=== PATIENT | male | born 1980 | race Caucasian/White ===

== ENCOUNTER 2023-03-01 08:55 | Emergency (ER) | payer BC, SELFPAY ==
[2023-03-01 09:04] VITALS: PULSE 61; RESP 18; TEMP 36.4; O2SAT 99; BMI 26.6
[2023-03-01 09:07] VITALS: BP 128/80
--- NOTE | 2023-03-01 09:19 | ED_ITS ---
HPI - Dental/Oral General Chief complaint: Dental/Oral Stated complaint: BROKEN WISDOM TOOTH L SIDE/PAIN Time Seen by Provider: 03/01/23 09:03 Source: patient Mode of arrival: walk-in Limitations: no limitations History of Present Illness HPI Narrative: left lower rear molar cracked last week. He has an appointment with the dentist to get it fixed in 2 days. It became painful and motrin and tylenol just aren't working . Related Data Previous Rx's Medication Instructions Recorded clindamycin HCl 150 mg capsule 450 mg PO TID 7 days #63 caps 03/01/23 nabumetone 750 mg tablet 750 mg PO BID PRN pain #20 tabs 03/01/23 Allergies Allergy/AdvReac Type Severity Reaction Status Date / Time No Known Drug Allergies Allergy Verified 03/01/23 09:06 [facility] Social History Smoking status: Current every day smoker Exam Narrative Exam Narrative: General: The patient is comfortable, alert and oriented x3, well appearing, non toxic in no apparent distress. Head: Atraumatic and normocephalic. Eyes: Normal conjunctiva ENT: The oropharynx is normal. No pharyngeal erythema, uvular edema, tonsillar exudates, asymmetry or trismus. Uvula is midline. Mouth is normal to inspection with the exception of a pain on percussion of the tooth #17 without evidence of dental abscess. There is no evidence of facial asymmetry or abscess formation. Floor of the mouth is soft. No tenderness in the submental or submandibular space. No tongue elevation or deviation. The patient has no evidence of periapical abscess, gingivitis or other acute pathology. Airway is patent. Neck: The neck demonstrates normal range of motion. No meningeals signs are present. No stridor. No masses or lymphandenopathy noted. Respiratory: No acute distress, no wheezing. No stridor or retractions are noted. Cardiovascular: normal peripheral perfusion Skin: The skin exam shows no evidence of rashes Neuro: Alert and oriented x4, normal speech Lymphatic: No cervical lymphadenopathy Constitutional Vital Signs, click to edit/add: Last Vital Signs Temp 97.5 F L 03/01/23 09:04 Pulse 61 03/01/23 09:04 Resp 18 03/01/23 09:04 BP 128/80 03/01/23 09:07 Pulse Ox 99 03/01/23 09:04 O2 Del Method Room Air 03/01/23 09:04 Course Vital Signs Vital signs: Vital Signs Temperature 97.5 F L 03/01/23 09:04 Pulse Rate 61 03/01/23 09:04 Respiratory Rate 18 03/01/23 09:04 Pulse Oximetry 99 03/01/23 09:04 Oxygen Delivery Method Room Air 03/01/23 09:04 Temperature 97.5 F L 03/01/23 09:04 Pulse Rate 61 03/01/23 09:04 Respiratory Rate 18 03/01/23 09:04 Blood Pressure 128/80 03/01/23 09:07 Pulse Oximetry 99 03/01/23 09:04 Oxygen Delivery Method Room Air 03/01/23 09:04 MDM - Dental/Oral MDM Narrative Medical decision making narrative: patient given topical dental anesthetic paste and prescribed clindamycin and relafen. He has an appointment with the dentist in two days and was instructed to keep that appointment. Discharge Plan Discharge Chief Complaint: Dental/Oral Clinical Impression: Toothache Patient Disposition: Home, Self-Care Time of Disposition Decision: 09:14 Prescriptions / Home Meds: New nabumetone 750 mg tablet 750 mg PO BID PRN (Reason: pain) Qty: 20 0RF clindamycin HCl 150 mg capsule 450 mg PO TID 7 Days Qty: 63 0RF Instructions: Toothache (ED) Additional Instructions: refer to dentist for follow up Stand Alone Forms: Portal Instructions
[2023-03-01] MEDS: BENZOCAINE 30 ML, lidocaine HCL 15 ML MM (09:36)
== END 2023-03-01 09:41 | disposition home or self-care (01) ==
LOC: ER 11:19
PROVIDERS: Emergency Provider Emergency Medicine; PCP Nurse Practitioner Family
DX: K08.89 Other specified disorders of teeth and supporting structures (principal); F17.200 Nicotine dependence, unspecified, uncomplicated; S02.5XXA Fracture of tooth (traumatic), initial encounter for closed fracture
CPT/HCPCS: 99282

== ENCOUNTER 2023-04-17 05:52 | Emergency (ER) | payer BC, SELFPAY ==
[2023-04-17 05:58] VITALS: BP 164/101; PULSE 61; RESP 18; TEMP 37; O2SAT 99; BMI 26.6
--- NOTE | 2023-04-17 06:07 | PC.NURSE ---
Had two teeth extracted one week ago, did not have this pain immediately, it only developed two days ago. He did take OTC Motrin which did not help. He also took antibiotics that he had from extractions that he had done on his right side. There was not noticeable amount of swelling, patient is able to move tongue, swallow, speak appropriately. Not having fevers.
--- NOTE | 2023-04-17 06:10 | ED.GENADUL1 ---
Documented by User: Manjeet Yousif MD 04/17/23 06:52 HPI - General Adult General Chief complaint: Dental/Oral Stated complaint: SORE THROAT Time Seen by Provider: 04/17/23 06:04 Source: patient Mode of arrival: walk-in Limitations: no limitations History of Present Illness HPI narrative: 42-year-old male presents for left-sided neck pain. One week ago today he had two teeth extracted on the left lower jaw and was doing well until last day when he developed some pain on the left side of his neck. No injury. No difficulty breathing or swallowing. The pain is moderate. Related Data Previous Rx's Medication Instructions Recorded nabumetone 750 mg tablet 750 mg PO BID PRN pain #20 tabs 04/17/23 Allergies Allergy/AdvReac Type Severity Reaction Status Date / Time No Known Drug Allergies Allergy Verified 03/01/23 09:06 Review of Systems ROS Narrative A ten point review of systems is negative except as noted above. PFSH PFSH Social History Smoking status: Current every day smoker Exam Narrative Exam Narrative: Nurses note and vital signs reviewed and patient is not hypoxic. General: The patient appears well and in no apparent distress. Patient is resting comfortably on cart. Skin: Warm, dry, no pallor noted. There is no rash noted. Head: Normocephalic, atraumatic Eye: Normal conjunctiva, no drainage Ears, Nose, Mouth, and Throat: oral mucosa is moist. Nares patent. dental extraction site appears to be healing well. No bleeding or swelling. No pharyngeal erythema or swelling. He's had his oral secretions well. No neck masses or swelling. Cardiovascular: Regular Rate and Rhythm Respiratory: Patient is in no distress, no accessory muscle use, lungs are clear to auscultation, no wheezing, rales or rhonchi Back: non-tender GI: Normal bowel sounds, no tenderness to palpation, no masses appreciated. No rebound, guarding, or rigidity noted. Musculoskeletal: The patient has no evidence of calf tenderness, no pitting edema, symmetrical pulses noted bilaterally Neurological: A&O normal speech Psychiatric: Cooperative Constitutional Vital Signs, click to edit/add: Last Vital Signs Temp 98.6 F 04/17/23 05:58 Pulse 61 04/17/23 05:58 Resp 18 04/17/23 05:58 BP 164/101 H 04/17/23 05:58 Pulse Ox 99 04/17/23 05:58 O2 Del Method Room Air 04/17/23 05:58 Course Vital Signs Vital signs: Vital Signs Temperature 98.6 F 04/17/23 05:58 Pulse Rate 61 04/17/23 05:58 Respiratory Rate 18 04/17/23 05:58 Blood Pressure 164/101 H 04/17/23 05:58 Pulse Oximetry 99 04/17/23 05:58 Oxygen Delivery Method Room Air 04/17/23 05:58 Temperature 98.6 F 04/17/23 05:58 Pulse Rate 61 04/17/23 05:58 Respiratory Rate 18 04/17/23 05:58 Blood Pressure 164/101 H 04/17/23 05:58 Pulse Oximetry 99 04/17/23 05:58 Oxygen Delivery Method Room Air 04/17/23 05:58 Medical Decision Making MDM Narrative Medical decision making narrative: CT scan is ordered and pending and the patient is signed out to Dr. Lopez at change of shift. Differential Diagnosis Differential Diagnosis: muscle strain, adenopathy, abscess, cellulitis Lab Data Lab results reviewed: Yes I reviewed the patient's lab results Labs: Lab Results 04/17/23 Range/Units 06:15 WBC 9.5 (4.0-11.0) 10^3/uL RBC 5.30 (4.70-6.10) 10^6/uL Hgb 15.4 (14.0-18.0) g/dL Hct 47.0 (42.0-54.0) % MCV 88.7 (80.0-94.0) fL MCH 29.1 (25.9-34.0) pg MCHC 32.8 (29.9-35.2) g/dL RDW 12.1 (11.0-15.0) % Plt Count 260 (150-450) 10^3/uL MPV 9.6 (9.5-13.5) fL Neut % (Auto) 53.0 (43.0-75.0) % Lymph % (Auto) 33.5 (20.5-60.0) % Putnam % (Auto) 9.1 (1.7-12.0) % Eos % (Auto) 3.3 (0.9-7.0) % Baso % (Auto) 0.9 (0.2-2.0) % Neut # (Auto) 5.1 (1.4-6.5) 10^3/uL Lymph # (Auto) 3.2 (1.2-3.8) 10^3/uL Putnam # (Auto) 0.9 H (0.3-0.8) 10^3/uL Eos # (Auto) 0.3 (0.0-0.7) 10^3/uL Baso # (Auto) 0.1 (0.0-0.1) 10^3/uL Abs Immat Gran (auto) 0.02 (0.00-0.03) 10^3/uL Imm/Tot Granulo (auto) 0.2 (0.0-0.5) % Sodium 140 (136-145) mmol/L Potassium 4.3 (3.5-5.1) mmol/L Chloride 106 (98-107) mmol/L Carbon Dioxide 28.2 (21.0-32.0) mmol/L Anion Gap 10.1 BUN 11.0 (7.0-18.0) mg/dL Creatinine 0.90 (0.70-1.30) mg/dL Est GFR ( Amer) >60 (>=60) Est GFR (Non-Af Amer) >60 (>=60) BUN/Creatinine Ratio 12.2 Glucose 106 (74-106) mg/dL Calcium 8.9 (8.5-10.1) mg/dL Discharge Plan Discharge Chief Complaint: Dental/Oral Clinical Impression: Neck pain Patient Disposition: Home, Self-Care Time of Disposition Decision: 07:32 Prescriptions / Home Meds: New nabumetone 750 mg tablet 750 mg PO BID PRN (Reason: pain) Qty: 20 0RF Instructions: Neck Pain (ED) Stand Alone Forms: Portal Instructions Referrals: TOYIN GAMEZ [Primary Care Provider] - 1 week Documented by User: Demond Lopez 04/17/23 07:35 HPI - General Adult General Chief complaint: Dental/Oral Stated complaint: SORE THROAT Time Seen by Provider: 04/17/23 06:04 Related Data Previous Rx's Medication Instructions Recorded nabumetone 750 mg tablet 750 mg PO BID PRN pain #20 tabs 04/17/23 Allergies Allergy/AdvReac Type Severity Reaction Status Date / Time No Known Drug Allergies Allergy Verified 03/01/23 09:06 PFSH PFSH Social History Smoking status: Current every day smoker Exam Constitutional Vital Signs, click to edit/add: Last Vital Signs Temp 98.6 F 04/17/23 05:58 Pulse 61 04/17/23 05:58 Resp 18 04/17/23 05:58 BP 164/101 H 04/17/23 05:58 Pulse Ox 99 04/17/23 05:58 O2 Del Method Room Air 04/17/23 05:58 Course Vital Signs Vital signs: Vital Signs Temperature 98.6 F 04/17/23 05:58 Pulse Rate 61 04/17/23 05:58 Respiratory Rate 18 04/17/23 05:58 Blood Pressure 164/101 H 04/17/23 05:58 Pulse Oximetry 99 04/17/23 05:58 Oxygen Delivery Method Room Air 04/17/23 05:58 Temperature 98.6 F 04/17/23 05:58 Pulse Rate 61 04/17/23 05:58 Respiratory Rate 18 04/17/23 05:58 Blood Pressure 164/101 H 04/17/23 05:58 Pulse Oximetry 99 04/17/23 05:58 Oxygen Delivery Method Room Air 04/17/23 05:58 Medical Decision Making [facility] Narrative Medical decision making narrative: CT scan is ordered and pending and the patient is signed out to Dr. Lopez at change of shift. No abscess or fluid collection - patient informed of results and discharged home with prescription for relafen. Lab Data Labs: Lab Results 04/17/23 Range/Units 06:15 WBC 9.5 (4.0-11.0) 10^3/uL RBC 5.30 (4.70-6.10) 10^6/uL Hgb 15.4 (14.0-18.0) g/dL Hct 47.0 (42.0-54.0) % MCV 88.7 (80.0-94.0) fL MCH 29.1 (25.9-34.0) pg MCHC 32.8 (29.9-35.2) g/dL RDW 12.1 (11.0-15.0) % Plt Count 260 (150-450) 10^3/uL MPV 9.6 (9.5-13.5) fL Neut % (Auto) 53.0 (43.0-75.0) % Lymph % (Auto) 33.5 (20.5-60.0) % [place] % (Auto) 9.1 (1.7-12.0) % Eos % (Auto) 3.3 (0.9-7.0) % Baso % (Auto) 0.9 (0.2-2.0) % Neut # (Auto) 5.1 (1.4-6.5) 10^3/uL Lymph # (Auto) 3.2 (1.2-3.8) 10^3/uL Putnam # (Auto) 0.9 H (0.3-0.8) 10^3/uL Eos # (Auto) 0.3 (0.0-0.7) 10^3/uL Baso # (Auto) 0.1 (0.0-0.1) 10^3/uL Abs Immat Gran (auto) 0.02 (0.00-0.03) 10^3/uL Imm/Tot Granulo (auto) 0.2 (0.0-0.5) % Sodium 140 (136-145) mmol/L Potassium 4.3 (3.5-5.1) mmol/L Chloride 106 (98-107) mmol/L Carbon Dioxide 28.2 (21.0-32.0) mmol/L Anion Gap 10.1 BUN 11.0 (7.0-18.0) mg/dL Creatinine 0.90 (0.70-1.30) mg/dL Est GFR ( Amer) >60 (>=60) Est GFR (Non-Af Amer) >60 (>=60) BUN/Creatinine Ratio 12.2 Glucose 106 (74-106) mg/dL Calcium 8.9 (8.5-10.1) mg/dL Imaging Data ct st neck: Radiologist's impression: Patient Name: TOÑITO PATEL MRN: [facility]:[id number] date: 1980 Sex: M Assigned Patient Location: ER Current Patient Location: ED.MAIN Accession/Order Number: [id number] Exam Date: 04/17/2023 06:30 Report Date: 04/17/2023 07:16 At the request of: MANJEET YOUSIF Procedure: CT soft tissue neck w con CT soft tissue neck w con, 04/17/2023 6:30 AM EST INDICATION: dental extraction one week ago, left-sided pain COMPARISON: There is no appropriate prior study for comparison. TECHNIQUE: CT imaging of the neck were acquired with contrast. Supplemental 2D reformatted images were generated and reviewed as needed. Dose reduction techniques were achieved by using automated exposure control and/or adjustment of mA and/or kV according to patient size and/or use of iterative reconstruction technique. FINDINGS: No abnormality of the base of skull is noted. There is absence of the teeth ADA #17, 18, and 32.No abscess or fluid collection is noted. No adjacent fatty stranding is noted. The nasopharynx, oropharynx, hypopharynx and oral cavity are unremarkable. The parotids, submandibular glands are unremarkable. The larynx is unremarkable. No abnormality of paraglottic fat is noted. There is no lymph node enlargement by size criteria. No retropharyngeal lymph node is noted. The thyroid gland is homogeneous. The visualized portions of lungs are unremarkable. There is no suspicious osteolytic or osteoblastic lesion. There are multilevel degenerative changes of cervical spine. IMPRESSION: No evidence of abscess or fluid collection. No lymphadenopathy. Electronically authenticated by: OCTAVIO NICKERSON Date: 04/17/2023 07:16 Discharge Plan Discharge Chief Complaint: Dental/Oral Clinical Impression: Neck pain Patient Disposition: Home, Self-Care Time of Disposition Decision: 07:32 Prescriptions / Home Meds: New nabumetone 750 mg tablet 750 mg PO BID PRN (Reason: pain) Qty: 20 0RF Instructions: Neck Pain (ED) Stand Alone Forms: Portal Instructions Referrals: TOYIN GAMEZ [Primary Care Provider] - 1 week
[2023-04-17] MEDS: KETOROLAC TROMETHAMINE 30 MG/ML VIAL IVP (06:25)
[2023-04-17 06:31] LABS: Basophils Absolute Auto 0.1 10^3/uL (0.0-0.1); Basophils Percent Auto 0.9 % (0.2-2.0); Eosinophils Absolute Auto 0.3 10^3/uL (0.0-0.7); Eosinophils Percent Auto 3.3 % (0.9-7.0); Hemoglobin 15.4 g/dL (14.0-18.0); Immature Granulocytes Abs Auto 0.02 10^3/uL (0.00-0.03); Immature Granulocytes Pct Auto 0.2 % (0.0-0.5); Lymphocytes Absolute Auto 3.2 10^3/uL (1.2-3.8); Lymphocytes Percent Auto 33.5 % (20.5-60.0); Mean Corpuscular HGB Conc 32.8 g/dL (29.9-35.2); Mean Corpuscular Hemoglobin 29.1 pg (25.9-34.0); Mean Corpuscular Volume 88.7 fL (80.0-94.0); Mean Platelet Volume 9.6 fL (9.5-13.5); Monocytes Absolute Auto 0.9 10^3/uL (0.3-0.8); Monocytes Percent Auto 9.1 % (1.7-12.0); Neutrophils Absolute Auto 5.1 10^3/uL (1.4-6.5); Platelet Count 260 10^3/uL (150-450); Red Cell Distribution Width 12.1 % (11.0-15.0); White Blood Count 9.5 10^3/uL (4.0-11.0)
[2023-04-17 06:39] LABS: Anion Gap 10.1; BUN Creatinine Ratio 12.2; Calcium 8.9 mg/dL (8.5-10.1); Carbon Dioxide 28.2 mmol/L (21.0-32.0); Chloride 106 mmol/L (98-107); Estimated GFR (African America >60 (>=60); Estimated GFR (Non-African Ame >60 (>=60); Glucose 106 mg/dL (74-106); Potassium 4.3 mmol/L (3.5-5.1); Sodium 140 mmol/L (136-145)
== END 2023-04-17 07:48 | disposition home or self-care (01) ==
PROVIDERS: Emergency Medicine; Emergency Provider Emergency Medicine; PCP Nurse Practitioner Family
DX: M54.2 Cervicalgia (principal); K08.409 Partial loss of teeth, unspecified cause, unspecified class; F17.210 Nicotine dependence, cigarettes, uncomplicated
CPT/HCPCS: 36415; 70491; 80048; 85025; 96374; 99284; Q9967